=== PATIENT | male | born 1985 | race Caucasian/White ===

== ENCOUNTER → 2017-01-30 | Outpatient (CLI) | payer OTHER ==
--- NOTE | 2017-01-30 14:35 | RADIOLOGY REPORT (SQ) ---
EXAM DESCRIPTION: TOE LEFT COMPLETED DATE/TIME: 01/30/2017 1:15 pm REASON FOR STUDY: INJURY OF LEFT GREAT TOE, INITIAL ENCOUNTER (S99.922A) S99.922A UNSPECIFIED INJUR Y OF LEFT FOOT, INITIAL ENCOUNTER COMPARISON: None. NUMBER OF VIEWS: Three views. TECHNIQUE: AP, lateral, and oblique images acquired of the left first toe. LIMITATIONS: None. FINDINGS: MINERALIZATION: Normal. BONES: No acute fracture or dislocation. No worrisome bone lesions. JOINTS: No effusions. SOFT TISSUES: No soft tissue swelling. No foreign body. OTHER: No other significant finding. IMPRESSION: NEGATIVE STUDY OF THE LEFT TOE. NO RADIOGRAPHIC EVIDENCE OF ACUTE INJURY. COMMENT: SITE OF TRAUMA/COMPLAINT MARKED/STAMP COMPLETED: Yes TECHNICAL DOCUMENTATION: JOB ID: [id number] [employer]- All Rights Reserved
== END ==
LOC: RAD 12:39
PROVIDERS: ATTEND Emergency Medicine
DX: S99.922A Unspecified injury of left foot, initial encounter (principal); X58.XXXA Exposure to other specified factors, initial encounter; Y93.9 Activity, unspecified; Y92.9 Unspecified place or not applicable

== ENCOUNTER 2017-06-04 10:34 | Emergency (ER) | payer OTHER ==
--- NOTE | 2017-06-04 11:50 | ER Document Report ---
ED General - General Chief Complaint: Anxiety Stated Complaint: ANXIETY Time Seen by Provider: 06/04/17 11:38 Mode of Arrival: Ambulatory Information source: Patient Notes: Patient is a 32 year old male with a history of anxiety and PTSD presents to the emergency department for feeling anxious onset 4-5 days ago. Patient states that he has been off of his medications for around 6 months and is unable to see his PCP until June. Patient states that he took Prozac which did not help as well as Ambien. Patient states that he also has cough and congestion which he saw Urgent Care for yesterday and was prescribed antibiotics. Patient states that he has been "jittery" and has had racy thoughts. Patient also complains of diarrhea x3 onset this morning, cough, congestion, diaphoresis when sleeping, stomach pain, and fever. Patient denies SI, homicidal ideations, hallucinations, or delusions. TRAVEL OUTSIDE OF THE [place] IN LAST 30 DAYS: No - Related Data Allergies/Adverse Reactions: No Known Allergies Allergy (Verified 06/04/17 10:36) Past Medical History - General Information source: Patient - Social History Smoking Status: Current Every Day Smoker Frequency of alcohol use: None Drug Abuse: None Family History: Reviewed & Not Pertinent Patient has suicidal ideation: No Patient has homicidal ideation: No Neurological Medical History: Reports: Hx Migraine Psychiatric Medical History: Reports: Hx Post Traumatic Stress Disorder Past Surgical History: Reports: Hx Orthopedic Surgery - right foot - Immunizations Hx Diphtheria, Pertussis, Tetanus Vaccination: No Review of Systems - Review of Systems Constitutional: See HPI, Diaphoresis, Fever EENT: No symptoms reported Cardiovascular: No symptoms reported Respiratory: See HPI, Cough Gastrointestinal: See HPI, Diarrhea Genitourinary: No symptoms reported Male Genitourinary: No symptoms reported Musculoskeletal: No symptoms reported Skin: No symptoms reported Hematologic/Lymphatic: No symptoms reported Neurological/Psychological: See HPI, Anxiety. denies: Homicidal ideation, Suicidal ideation -: Yes All other systems reviewed and negative Physical Exam - Vital signs Vitals: Temp Pulse Resp BP Pulse Ox 99.1 F 102 H 16 128/74 H 96 06/04/17 10:43 06/04/17 10:43 06/04/17 10:43 06/04/17 10:43 06/04/17 10:43 - Notes Notes: GENERAL: Alert, interacts well. No acute distress. HEAD: Normocephalic, atraumatic. LUNGS: Clear to auscultation bilaterally, no wheezes, rales, or rhonchi. No respiratory distress. HEART: Regular rate and rhythm. No murmurs, gallops, or rubs. EXTREMITIES: Moves all 4 extremities spontaneously. NEUROLOGICAL: Alert and oriented x3. Normal speech. cranial nerves II through XII grossly intact. increased psychomotor agitation. PSYCH: Normal affect, normal mood. Denies suicidal ideations, homicidal ideations, delusions, or hallucinations. SKIN: Warm, dry, normal turgor. No rashes or lesions noted. Course - Vital Signs Vital signs: Temp Pulse Resp BP Pulse Ox 99.1 F 102 H 16 128/74 H 96 06/04/17 10:43 06/04/17 10:43 06/04/17 10:43 06/04/17 10:43 06/04/17 10:43 Discharge - Discharge Instructions: Anxiety (OM) Scribe Documentation - Scribe Written by Chrissie:: Chrissie King, 06/04/2017 12:00 acting as scribe for :: Phan
--- NOTE | 2017-06-04 13:14 | ER Document Report ---
ED General - General Chief Complaint: Anxiety Stated Complaint: ANXIETY Time Seen by Provider: 06/04/17 11:38 Mode of Arrival: Ambulatory Information source: Patient Notes: 32-year-old male with history of anxiety who presents today stating he has had some increased anxiety over the last month especially over the last for 5 days secondary to a loss of his job. Patient denies any homicidal suicidal ideations. He denies any auditory visual hallucinations. Patient denies any history of suicide attempts. Patient states that he sees [facility] but states he has not taken his medications prescribed for the last 4 months. Patient states "I was feel better and stopped my meds". He states he try to get an appointment there but his primary care physician Dr. Noonan is out for the next week. Patient states he does have a primary care physician, Dr. Marlen ott, but he was unable to see her today. Patient denies any headache, neck pain, chest pain, abdominal pain, weakness or numbness. Patient states he has had 3 days of congestion and has taken some Sudafed. TRAVEL OUTSIDE OF THE [place] IN LAST 30 DAYS: No - HPI Onset: Other - See above Onset/Duration: Gradual Quality of pain: No pain Severity: Moderate Pain Level: Denies Associated symptoms: Other - See above Exacerbated by: Other - See above Relieved by: Denies Similar symptoms previously: Yes Recently seen / treated by doctor: Yes - Related Data Allergies/Adverse Reactions: No Known Allergies Allergy (Verified 06/04/17 10:36) Past Medical History - General Information source: Patient - Social History Smoking Status: Current Every Day Smoker Cigarette use (# per day): No Chew tobacco use (# tins/day): No Smoking Education Provided: No Frequency of alcohol use: None Drug Abuse: None Family History: Reviewed & Not Pertinent Patient has suicidal ideation: No Patient has homicidal ideation: No Neurological Medical History: Reports: Hx Migraine Renal/ Medical History: Denies: Hx Peritoneal Dialysis Psychiatric Medical History: Reports: Hx Post Traumatic Stress Disorder Past Surgical History: Reports: Hx Orthopedic Surgery - right foot - Immunizations Hx Diphtheria, Pertussis, Tetanus Vaccination: No Review of Systems - Review of Systems Constitutional: denies: Fever EENT: Nose congestion, Nose discharge. denies: Eye discharge Respiratory: denies: Short of breath Gastrointestinal: denies: Vomiting Genitourinary: denies: Dysuria Musculoskeletal: denies: Leg swelling Skin: Other - no hives. denies: Rash Neurological/Psychological: Other - no slurred speech -: Yes All other systems reviewed and negative Physical Exam - Vital signs Vitals: Temp Pulse Resp BP Pulse Ox 99.1 F 102 H 16 128/74 H 96 06/04/17 10:43 06/04/17 10:43 06/04/17 10:43 06/04/17 10:43 06/04/17 10:43 Notes: Reviewed vital signs and nursing note as charted by RN. CONSTITUTIONAL: Alert and oriented and responds appropriately to questions. Well -appearing; well-nourished HEAD: Normocephalic; atraumatic EYES: PERRL ENT: Normal nose; no rhinorrhea; moist mucous membranes; pharynx without lesions noted NECK: Supple without meningismus; non-tender CARD: Regular rate and rhythm; no murmurs RESP: Normal chest excursion without splinting or tachypnea; breath sounds clear and equal bilaterally ABD/GI: Normal bowel sounds; non-distended; soft, non-tender BACK: The back appears normal and is non-tender to palpation, there is no CVA tenderness EXT: Normal ROM in all joints; non-tender to palpation; no cyanosis, no effusions, no edema SKIN: No acute lesions noted NEURO: CN II through XII are intact. Moves all extremities equally; Motor and sensory function intact PSYCH: The patient's mood and manner are appropriate. Grooming and personal hygiene are appropriate. Course - Re-evaluation Re-evalutation: 06/04/17 13:11 Given the history and physical examination I did call Dr. Noonan's office. Supposedly it is true that he is out for the next week. There was supposedly no other providers they were able to assist me in reviewing the patient's previous charts according to the guidance secretary. She was however able to tell me that the patient last filled his prescriptions July 2016 for Prozac 20 mg twice daily as well as doxepin 25-50 mg PRN sleep. Patient endorses no suicidal homicidal ideations at this time. No focal neurological deficits. No nystagmus noted. Patient is calm and cooperative. Vital signs are stable. I will start the patient on his medication regimen at a lower dose secondary to the titration effect and have the patient follow-up with his psychiatrist when he returns from vacation. - Vital Signs Vital signs: Temp Pulse Resp BP Pulse Ox 99.1 F 102 H 16 128/74 H 96 06/04/17 10:43 06/04/17 10:43 06/04/17 10:43 06/04/17 10:43 06/04/17 10:43 Discharge - Discharge Clinical Impression: Anxiety Condition: Good Disposition: HOME, SELF-CARE Instructions: Anxiety (OM) Additional Instructions: Come back immediately with any increased anxiety, hallucinations, thoughts of injuring yourself or others, or any other acute problems. Please follow-up with your primary care physician as well as her psychiatrist for continued medication adjustment as needed. Prescriptions: Doxepin HCl [Sinequan 25 mg Capsule] 25 mg PO QHS PRN #15 capsule PRN Reason: Fluoxetine HCl [Prozac 20 mg Capsule] 20 mg PO DAILY #30 capsule Lorazepam [Ativan 0.5 mg Tablet] 0.5 mg PO Q4 PRN #10 tab PRN Reason:
[2017-06-04 14:28] VITALS: BP 124/77
--- NOTE | 2017-06-04 21:05 | PSYCHOLOGICAL NOTE ---
Psych Note - Psych Note Psych Note: Patient is a 32 year old male who presented to the ED today for anxiety. He reported his outpatient provider is Dr. Sharp at [facility] (for the past 10 years) and he has an appointment scheduled for 06/26/17. He acknowledged he has a bad problem with "thinking he is fixed so then he stops his medications." He noted he also recently got fired from his job and lost his house. He stated "I am optimistic though." He described his anxiety as "insides feel very uncomfortable." He was antsy sitting in the chair (tapping feet, moving about). He reported his medications are supposed to be Prozac and two others. He commented the ED Physician called to verify medications with his provider. He admitted to 2 previous hospitalizations at [facility]. He denied SI/HI and commented how he needed to get to [place] because his 30 day tags today (future oriented thinking). Patient was alert and oriented to person, place, time and situation. Mood was anxious with congruent affect AEB antsy demeanor. He denied SI/HI and these were no presenting concerns. He did not appear to be responding to internal stimuli AEB fair eye contact and ability to carry on dialogue conversation. Thought processes were linear and organized. Conversational speech was WNL for rate, tone and prosody. Intellectual abilities are estimated to be average,. Insight, judgment and impulse control were fair AEB coming to the ED for help with anxiety as last resort given his outpatient behavioral health provider cannot see him sooner than 06/26/17 and his PCM did not want to do anything. Diagnosis: 311 (F32.9) Unspecified Depressive Disorder By History 300.00 (F41.9) Unspecified Anxiety Disorder by History Impression/Plan: Patient is psychiatrically cleared. ED Physician already had discharge papers and scripts for the following: Prozac 20MG QD, Sineequan 25MG QHS and Ativan 0.5MG Q4H PRN (8-10 pills total). He confirmed he had contacted Dr. Sharp at [facility]. Consulted with Dr. Ewing regarding the management and care of patient. Dr. Ewing suggested running a controlled substance report to ensure patient not trying to see multiple providers. ED Physician made aware and felt not necessary since he spoke to patient's outpatient provider and only provided limited number of controlled substance (Ativan).
== END 2017-06-04 14:28 | disposition home or self-care (01) ==
LOC: ER 10:34
DX: F41.9 Anxiety disorder, unspecified (principal); R09.81 Nasal congestion; F32.9 Major depressive disorder, single episode, unspecified; F17.200 Nicotine dependence, unspecified, uncomplicated
CPT/HCPCS: 99284

== ENCOUNTER 2017-06-17 01:38 | Emergency (ER) | payer OTHER ==
[2017-06-17 01:52] VITALS: BP 117/75
== END 2017-06-17 02:08 | disposition left against medical advice (07) ==
LOC: ER 01:38
DX: Z53.9 Procedure and treatment not carried out, unspecified reason (principal); M79.642 Pain in left hand

== ENCOUNTER 2017-06-19 09:24 | Emergency (ER) | payer OTHER ==
--- NOTE | 2017-06-19 10:01 | ER Document Report ---
HPI - HPI Patient complains to provider of: multiple cuts from jumping out window Onset: Other - 06-18 Quality of pain: Burning, Throbbing Pain Level: 3 Context: 32 yo male jumped out of window on 06-18 and cut his post. upper left thigh , left hand and right anterior knee. Tetanus not current. Associated Symptoms: None Exacerbated by: Denies Relieved by: Denies Similar symptoms previously: No Recently seen / treated by doctor: No - ROS ROS below otherwise negative: Yes Systems Reviewed and Negative: Yes All other systems reviewed and negative Past Medical History - General Information source: Patient - Social History Smoking Status: Never Smoker Frequency of alcohol use: Occasional Drug Abuse: None Family History: Reviewed & Not Pertinent Neurological Medical History: Reports: Hx Migraine Renal/ Medical History: Denies: Hx Peritoneal Dialysis Psychiatric Medical History: Reports: Hx Post Traumatic Stress Disorder Past Surgical History: Reports: Hx Orthopedic Surgery - right foot - Immunizations Hx Diphtheria, Pertussis, Tetanus Vaccination: No Vertical Provider Document - CONSTITUTIONAL Agree With Documented VS: Yes Exam Limitations: No Limitations General Appearance: No Apparent Distress - INFECTION CONTROL TRAVEL OUTSIDE OF THE [place] IN LAST 30 DAYS: No - HEENT HEENT: Conjuctival Injection - NECK Neck: Supple - RESPIRATORY O2 Sat by Pulse Oximetry: 98 - MUSCULOSKELETAL/EXTREMETIES Musculoskeletal/Extremeties: WALDO MARROQUIN - DERM Integumentary: Laceration - 5 cm laceartoin posterior upper left thigh with budding granulation tissue, 3mm deep. no infection. anterior right kne with 3 superficail abrasions. dorsal left hand with superficial flap cut, 2cm, no infection Course - Vital Signs Vital signs: Temp Pulse Resp BP Pulse Ox 99.1 F 107 H 16 147/75 H 98 06/19/17 09:32 06/19/17 09:32 06/19/17 09:32 06/19/17 09:32 06/19/17 09:32 Discharge - Discharge Clinical Impression: left hand wound check, left posterior upper thigh wound check, Abrasion, right knee, initial encounter Condition: Good Disposition: HOME, SELF-CARE Instructions: Antibiotic Ointment Protection ([facility]), Dressing Instructions for Open Wounds ([facility]), Soap Cleansing ([facility]), Tetanus Immunization Given ([facility]) Additional Instructions: You may shower and wash the wounds with soap and water daily Vaseline Telfa which is non-stick dressing as the wounds heal. Return to the emergency room any signs of infection. Cephalexin prescription for 5 days to continue the antibiotic protection Prescriptions: Cephalexin Monohydrate [Keflex 500 mg Capsule] 500 mg PO QID #20 capsule Referrals: EDSON VALADEZ PA-C [Primary Care Provider] - Follow up as needed
[2017-06-19] MEDS ORDERED: DIPH/PERTUSS(ACELL)/TETANUS VAC/PF 0.5 ML SYR (>=10YO) IM ONE (10:20)
[2017-06-19 10:45] VITALS: BP 136/72
== END 2017-06-19 10:58 | disposition home or self-care (01) ==
LOC: ER 09:24
DX: S71.112A Laceration without foreign body, left thigh, initial encounter (principal); S61.412A Laceration without foreign body of left hand, initial encounter; S80.211A Abrasion, right knee, initial encounter; W25.XXXA Contact with sharp glass, initial encounter; Y93.39 Activity, other involving climbing, rappelling and jumping off
CPT/HCPCS: 90471; 90715; 99282

== ENCOUNTER 2019-04-17 11:05 | Emergency (ER) | payer OTHER ==
[2019-04-17] MEDS ORDERED: IPRATROPIUM/ALBUTEROL 0.5-2.5 MG/3 ML AMPUL NEB ONE (11:34)
--- NOTE | 2019-04-17 11:35 | ER Document Report ---
ED Medical Screen (RME) - General Stated Complaint: PAIN IN LEFT SIDE Time Seen by Provider: 04/17/19 11:33 Primary Care Provider: EDSON VALADEZ PA-C [Primary Care Provider] - Follow up as needed Mode of Arrival: Ambulatory Information source: Patient Notes: Patient is an otherwise healthy 33-year-old male presenting to the emergency department with chief complaint cough, shortness of breath and left rib pain. Patient reports last night he was coughing so hard he felt a pop in his ribs. Patient reports since that time he has had shortness of breath. Lung sounds are clear and equal bilaterally. No acute distress noted. Bronchospasm with deep cough noted. I have greeted and performed a rapid initial assessment of this patient. A comprehensive ED assessment and evaluation of the patient, analysis of test results and completion of the medical decision making process will be conducted by additional ED providers. I have specifically instructed the patient or family members with the patient to immediately return to any nursing staff should anything change in the patient's condition or with their chief complaint. This medical record was dictated with voice recognizing software. There may be grammatical, syntax errors that are unintended. TRAVEL OUTSIDE OF THE [place] IN LAST 30 DAYS: No - Related Data Allergies/Adverse Reactions: No Known Allergies Allergy (Verified 04/17/19 11:32) Past Medical History Neurological Medical History: Reports: Hx Migraine Renal/ Medical History: Denies: Hx Peritoneal Dialysis Psychiatric Medical History: Reports: Hx Post Traumatic Stress Disorder Past Surgical History: Reports: Hx Abdominal Surgery - hernia repair, Hx Orthopedic Surgery - right foot - Immunizations Hx Diphtheria, Pertussis, Tetanus Vaccination: No Physical Exam - Vital signs Vitals: Temp Pulse Resp BP Pulse Ox 98.3 F 72 18 149/75 H 98 04/17/19 11:09 04/17/19 11:09 04/17/19 11:09 04/17/19 11:09 04/17/19 11:09 Course - Vital Signs Vital signs: Temp Pulse Resp BP Pulse Ox 98.3 F 72 18 149/75 H 98 04/17/19 11:09 04/17/19 11:09 04/17/19 11:09 04/17/19 11:09 04/17/19 11:09 Doctor's Discharge - Discharge Referrals: EDSON VALADEZ PA-C [Primary Care Provider] - Follow up as needed
--- NOTE | 2019-04-17 12:38 | RADIOLOGY REPORT (SQ) ---
EXAM DESCRIPTION: RIBS LEFT W/PA CHEST COMPLETED DATE/TIME: 04/17/2019 12:22 pm REASON FOR STUDY: left lateral rib pain with cough/sob COMPARISON: None. TECHNIQUE: Frontal view of the chest and additional views of the left ribs acquired. NUMBER OF VIEWS: Five view. LIMITATIONS: None. FINDINGS: FRONTAL CXR: The cardiomediastinal silhouette and pulmonary vasculature are within normal limits. There is no consolidation, pleural effusion or pneumothorax. RIBS: No displaced rib fractures. OTHER: No other finding. IMPRESSION: No acute cardiopulmonary process. No displaced rib fracture. COMMENT: SITE OF TRAUMA/COMPLAINT MARKED/STAMP COMPLETED: NO. TECHNICAL DOCUMENTATION: JOB ID: [id number] [employer]- All Rights Reserved Reading location - IP/workstation name: [email or web address]
[2019-04-17 13:00] VITALS: BP 133/85
[2019-04-17] MEDS ORDERED: LIDOCAINE 5% (700 MG) TRANSDERMAL ADH..PATCH TP ONE (13:47)
--- NOTE | 2019-04-17 13:54 | ER Document Report ---
HPI - HPI Patient complains to provider of: left chest wall pain Time Seen by Provider: 04/17/19 11:33 Pain Level: 4 Context: 33-year-old male with history of TBI presents to the emergency department with chief complaint of cough, shortness of breath, left rib pain. Patient states that he was coughing violently this morning and his told him to go to the bathroom so he put a towel over his mouth and had a forceful cough. He then heard a pop and has been in significant pain in the left mid axillary region since. Patient states that he has shortness of breath that is secondary to pain. Patient is unable to take a deep breath without significant pain. Fevers or chills, no nausea or vomiting, no central chest pain. 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 No other complaints - REPRODUCTIVE Reproductive: DENIES: : Past Medical History - General Information source: Patient - Social History Smoking Status: Former Smoker Chew tobacco use (# tins/day): No Frequency of alcohol use: None Drug Abuse: None Family History: Reviewed & Not Pertinent Patient has suicidal ideation: No Patient has homicidal ideation: No Neurological Medical History: Reports: Hx Migraine Renal/ Medical History: Denies: Hx Peritoneal Dialysis Psychiatric Medical History: Reports: Hx Post Traumatic Stress Disorder Past Surgical History: Reports: Hx Abdominal Surgery - hernia repair, Hx Orthopedic Surgery - right foot - Immunizations Hx Diphtheria, Pertussis, Tetanus Vaccination: No Vertical Provider Document - CONSTITUTIONAL Notes: PHYSICAL EXAMINATION: Reviewed vital signs and charting by RN GENERAL: Alert, interacts well. No acute distress. HEAD: Normocephalic, atraumatic. EYES: Pupils equal and round. Extraocular movements intact. ENT: Oral mucosa moist, tongue midline. NECK: Full range of motion. Trachea midline. LUNGS: Clear to auscultation bilaterally, no wheezes, rales, or rhonchi. No respiratory distress. HEART: Regular rate and rhythm. No murmur CHEST: Acute tenderness to palpation over the left lower ribs and at the area of the anterior axillary line, very mild edema noted ABDOMEN: soft, non-tender. No distention. Bowel sounds present EXTREMITIES: Moves all 4 extremities spontaneously. No edema, No cyanosis. PSYCH: Normal affect, normal mood. SKIN: Warm, dry, normal turgor. No rashes or lesions noted. - INFECTION CONTROL TRAVEL OUTSIDE OF THE [place] IN LAST 30 DAYS: No Course - Re-evaluation Re-evalutation: 04/17/19 13:52 Patient presents with costochondritis versus pneumothorax versus pleuritis. Chest x-ray done which shows no evidence of pneumothorax as lung markings are visualized across the entire parenchyma, no evidence of pneumomediastinum, patient denies vaping or any associated THC vaping. History is most consistent with a costochondritis based off clinical exam and absence of any acute findings on chest x-ray. Plan is to give him a Lidoderm patch and a short prescription for Robaxin. Patient has been educated and he will continue to take Aleve 400 mg every 12 hours. All questions were answered and patient is in agreement with plan. Strict return precautions were given. - Vital Signs Vital signs: Temp Pulse Resp BP Pulse Ox 98.6 F 62 18 133/85 H 99 04/17/19 12:59 04/17/19 12:59 04/17/19 12:59 04/17/19 12:59 04/17/19 12:59 Discharge - Discharge Clinical Impression: Rib pain on left side, Cough Condition: Good Disposition: HOME, SELF-CARE Additional Instructions: You were seen in the emergency department this afternoon for left-sided rib cleve n. It is most likely costochondritis and it will take several days for symptoms to subside. In the meantime continue to take Aleve 400 mg every 12 hours and you can purchase some Aspercreme with lidocaine and put it over the area of tenderness to help with superficial pain. Also, I have given you a short prescription of Robaxin that you can take in the evening at bedtime to see if that will help. Please return to the emergency department if you develop severe acute shortness of breath, acute weakness, or you have any other concerning symptoms. Prescriptions: Methocarbamol [Robaxin 750 mg Tablet] 750 mg PO ASDIR PRN #40 tablet PRN Reason: Referrals: EDSON VALADEZ PA-C [NO LOCAL MD] - Follow up as needed
== END 2019-04-17 14:03 | disposition home or self-care (01) ==
LOC: ER 11:05
DX: R07.81 Pleurodynia (principal); R05 Cough; R06.02 Shortness of breath; R60.0 Localized edema; Z87.891 Personal history of nicotine dependence
CPT/HCPCS: 71101; J7620; 94640; 99283